=== PATIENT | female | born 1995 | race Caucasian/White ===

== ENCOUNTER → 2016-12-23 | Outpatient (CLI) | payer OTHER ==
[~2016-12-23] MED LIST: BCPILLS PO; DICY20TA10 PO; HYSSR375 PO; LORA-741 PO; NORGTAB36 PO; PANT40TA PO; SERT-234 PO; VITAMIN D2 PO; ZNTT/150 PO
--- NOTE | 2016-12-23 12:39 | DIAGNOSTIC IMAGING REPORT ---
NUCLEAR GASTRIC EMPTYING STUDY CLINICAL HISTORY: Epigastric abdominal pain. Early satiety. COMPARISON STUDY: Abdominal ultrasound dated 04/06/2016. TECHNIQUE: Following the oral administration of 1.089 mCi of technetium 99m sulfur colloid in egg sandwich and 8 ounces of water, static abdominal images are obtained anteriorly and posteriorly at 0 minutes, 1 hour, 2 hour, and 4 hour time intervals. Gastric emptying was calculated utilizing the geometric mean method. FINDINGS: There is approximately 83% activity remaining at the 1 hour time interval, 53% remaining at the 2 hour time interval (normal is less than 60%), and 1% activity remaining at the 4 hour time interval (normal is less than 10%). IMPRESSION: Findings are consistent with normal gastric emptying for solids. Electronically signed by: Lexx Lemus M.D. 12/23/2016 12:37 PM Dictated Date/Time: 12/23/2016 12:36 PM
== END | disposition home or self-care (01) ==
LOC: C.NUCL 07:31
PROVIDERS: ATTEND Internal Medicine
DX: R10.13 Epigastric pain (principal); R68.81 Early satiety; K21.9 Gastro-esophageal reflux disease without esophagitis

== ENCOUNTER → 2017-01-18 | Day surgery (SDC) | payer OTHER ==
[2017-01-06 12:36] VITALS: BMI 26.0
[~2017-01-18] VITALS: Ht 139.7 cm; Wt 51.8 kg
[~2017-01-18] MED LIST changes: -DICY20TA10 PO; +LIDOCAINE HCL 2% 2 ML VIAL (20MG/ML) ONE; +MIDAZOLAM HCL 1 MG/ML 2ML VIAL ONE; -NORGTAB36 PO; +PROPOFOL IV EMULSION 10 MG/ML 20 ML VIAL IV ONE; +SODIUM CHLORIDE 0.9% 500ML 500 ML IV ONE
[2017-01-18 08:22] VITALS: Ht 139.7 cm; Wt 51.8 kg
--- NOTE | 2017-01-18 09:06 | Endo History and Physical ---
History & Physical Date of Service: Jan 18, 2017. Chief Complaint: GERD, EPIGASTRIC ADB PAIN Referring Physician: DR. DUYEN ALEGRIA History of Present Illness 21 yo CF who presents for EGD secondary to GERD and Epigastric abdominal pain. Past Medical History Gastrointestinal Disorder Past Surgical History Hx Cardiac Surgery: No Hx Internal Defibrillator: No Hx Pacemaker: No Hx Abdominal Surgery: No Hx of Implantable Prosthesis: No Hx Post-Op Nausea and Vomiting: No Hx Cancer Surgery: No Hx Thoracic Surgery: No Hx Orthopedic: No Hx Urinary Tract Surgery: No Family History Polyp Social History Smoking Status: Never Smoker Hx Substance Use: No Hx Alcohol Use: Yes (OCCASSIONALLY) Allergies Coded Allergies: No Known Allergies (Verified , OTHER, 01/06/17) Current Medications Reported Home Medications Medications Dose Route/Sig Max Daily Dose Days Date Category Ativan (Lorazepam) 0.5 Mg Tab 0.5 Mg PO DAILY PRN 01/06/17 Reported [Vitamin D2] 1.25 Mg PO WK 01/06/17 Reported Zoloft (Sertraline HCl) 100 Mg Tab 100 Mg PO QAM 01/06/17 Reported Protonix (Pantoprazole Sodium) 40 Mg Tab 40 Mg PO QAM 01/06/17 Reported Control Pills (Miscellaneous) Tab 1 Tab PO QAM 01/06/17 Reported Zantac (Ranitidine HCl) 150 Mg Tab 2 Tab PO HS 01/06/17 Reported Hyoscyamine Sulfate ER (Hyoscyamine Sulfate) 0.375 Mg Tab 1 Tab PO QAM 01/06/17 Reported Vital Signs Weight (Kilograms): 51.82 Height (Feet): 4 Height (Inches): 7 Date Time Temp Pulse Resp B/P Pulse Ox O2 Delivery O2 Flow Rate FiO2 01/18/17 08:45 36.9 96 20 116/84 96 Room Air Physical Exam General Appearance: WD/WN, no apparent distress Respiratory/Chest: Auscultation: breath sounds normal Cardiovascular: Heart Auscultation: RRR Abdomen: Bowel Sounds: normal Inspection & Palpation: soft, non-distended, no tenderness, guarding & rebound Assessment and Plan Assessment: 21 yo CF who presents for EGD secondary to GERD and Epigastric abdominal pain. Plan: Proceed with EGD.
--- NOTE | 2017-01-18 09:16 | Discharge Instructions ---
Endoscopy Patient Instructions Date / Procedure(s) Performed Jan 18, 2017. EGD Allergy Information Coded Allergies: No Known Allergies (Verified , OTHER, 01/06/17) Discharge Date / Findings Jan 18, 2017. Gastritis s/p biopsies Medication Instructions OK to resume all medications today as prescribed. Reported Home Medications Medications Dose Route/Sig Max Daily Dose Days Date Category Ativan (Lorazepam) 0.5 Mg Tab 0.5 Mg PO DAILY PRN 01/06/17 Reported [Vitamin D2] 1.25 Mg PO WK 01/06/17 Reported Zoloft (Sertraline HCl) 100 Mg Tab 100 Mg PO QAM 01/06/17 Reported Protonix (Pantoprazole Sodium) 40 Mg Tab 40 Mg PO QAM 01/06/17 Reported Control Pills (Miscellaneous) Tab 1 Tab PO QAM 01/06/17 Reported Zantac (Ranitidine HCl) 150 Mg Tab 2 Tab PO HS 01/06/17 Reported Hyoscyamine Sulfate ER (Hyoscyamine Sulfate) 0.375 Mg Tab 1 Tab PO QAM 01/06/17 Reported Provider Instructions Activity Restrictions - No exercising or heavy lifting for 24 hours. - Do not drink alcohol the day of the procedure. - Do not drive a car or operate machinery until the day after the procedure. - Do not make any important decisions or sign important papers in 24 hours after the procedure. Following Day: - Return to full activity which may include returning to work/school. Diet Start your diet with liquids and light foods (jello, soup, juice, toast). Then eat your usual diet if not nauseated. Treatment For Common After Affects For mild abdominal pain, bloating, or excessive gas: - Rest - Eat lightly - Lie on right side Follow-Up Information Follow-up with DR. DYUEN ALEGRIA as scheduled Anesthesia Information What You Should Know You have had a procedure that required some medicine to reduce anxiety and discomfort. This treatment is called moderate sedation. After receiving the treatment, you may be sleepy, but you will be able to breathe on your own. The effects of the treatment may last for several hours. Follow these instructions along with Activity/Diet recommendations noted above: * Do NOT do anything where dizziness or clumsiness would be dangerous. * Rest quietly at home today, then you can be up and about tomorrow. * Have a responsible person stay with you the rest of today. * You may have had an I.V. today. If so, you may take the dressing off later today. Recommendations Call your doctor if: * Trouble breathing * Continuous vomiting for more than 24 hours * Temperature above 101 degrees * Severe abdominal pain or bloating * Pain not relieved by pain medicine ordered * There is increased drainage or redness from any incision * A large amount of rectal bleeding greater than 2-3 tablespoons. (If you had a polyp/s removed or have hemorrhoids, a small amount of blood - from the rectum is to be expected.) * You have any unanswered questions or concerns. IN THE EVENT OF A SERIOUS EMERGENCY, GO TO THE NEAREST EMERGENCY ROOM Your discharge instructions were prepared by provider Jp Pena. Patient Instructions Signature Page Irene Lang Patient (or Guardian) Signature/Date: I have read and understand the instructions given to me by my caregivers. Caregiver/RN/Doctor Signature/Date: The above-named patient and/or guardian has received patient instructions on this date. + Original Patient Signature Page (only) stays with chart. Please make copy for patient.
--- NOTE | 2017-01-18 09:19 | GI REPORT ---
Procedure Date: 01/18/2017 9:05 AM Procedure: Upper GI endoscopy Indications: Epigastric abdominal pain, Gastro-esophageal reflux disease Medicines: Monitored Anesthesia Care Complications: No immediate complications. Estimated Blood Loss: Estimated blood loss: none. Procedure: Pre-Anesthesia Assessment: - Prior to the procedure, a History and Physical was performed, and patient medications and allergies were reviewed. The patient's tolerance of previous anesthesia was also reviewed. The risks and benefits of the procedure and the sedation options and risks were discussed with the patient. All questions were answered, and informed consent was obtained. Prior Anticoagulants: The patient has taken no previous anticoagulant or antiplatelet agents. ASA Grade Assessment: II - A patient with mild systemic disease. After reviewing the risks and benefits, the patient was deemed in satisfactory condition to undergo the procedure. After obtaining informed consent, the endoscope was passed under direct vision. Throughout the procedure, the patient's blood pressure, pulse, and oxygen saturations were monitored continuously. The scope was introduced through the mouth, and advanced to the second part of duodenum. The upper GI endoscopy was accomplished without difficulty. The patient tolerated the procedure well. Findings: The esophagus was normal. Localized mild inflammation characterized by erythema was found in the gastric antrum. Biopsies were taken with a cold forceps for histology. The examined duodenum was normal. Impression: - Normal esophagus. - Gastritis. Biopsied. - Normal examined duodenum. Recommendation: - Resume previous diet. - Continue present medications. - Await pathology results. - Return to GI office as previously scheduled. Jp Pena DO 01/18/2017 9:18:33 AM This report has been signed electronically. Note Initiated On: 01/18/2017 9:05 AM I attest to the content of the Intraoperative Record and orders documented therein, exceptions below
[2017-01-18 09:55] VITALS: BP 129/96; PULSE 62; O2SAT 96
--- NOTE | 2017-01-18 10:07 | Anesthesiology Progress Note ---
Anesthesia Post Op Note Date & Time Jan 18, 2017 at 10:06 Vital Signs Pain Intensity: 0 Vital Signs Past 12 Hours Date Time Temp Pulse Resp B/P Pulse Ox O2 Delivery O2 Flow Rate FiO2 01/18/17 09:55 62 20 129/96 96 Room Air 01/18/17 09:40 72 20 121/75 97 Room Air 01/18/17 09:25 75 16 104/65 97 Room Air 01/18/17 08:45 36.9 96 20 116/84 96 Room Air Notes Mental Status: alert / awake / arousable, participated in evaluation Pt Amnestic to Procedure: Yes Nausea / Vomiting: adequately controlled Pain: adequately controlled Airway Patency, RR, SpO2: stable & adequate BP & HR: stable & adequate Hydration State: stable & adequate Anesthetic Complications: no major complications apparent
== END | disposition home or self-care (01) ==
LOC: C.GI 08:07
PROVIDERS: ATTEND Internal Medicine
DX: K29.70 Gastritis, unspecified, without bleeding (principal); K21.9 Gastro-esophageal reflux disease without esophagitis

== ENCOUNTER → 2017-07-05 | Outpatient (CLI) | payer OTHER ==
[~2017-07-05] MED LIST changes: -LIDOCAINE HCL 2% 2 ML VIAL (20MG/ML) ONE; -MIDAZOLAM HCL 1 MG/ML 2ML VIAL ONE; -PROPOFOL IV EMULSION 10 MG/ML 20 ML VIAL IV ONE; -SODIUM CHLORIDE 0.9% 500ML 500 ML IV ONE
== END | disposition home or self-care (01) ==
LOC: C.PAPS 11:48
PROVIDERS: ATTEND Obstetrics & Gynecology
DX: Z12.4 Encounter for screening for malignant neoplasm of cervix (principal)

== ENCOUNTER 2020-02-09 07:07 | Inpatient (IN) ==
[2020-02-09] MEDS ORDERED: OXYTOCIN 30 UNITS/500 ML BAG IV PRN ×3 (07:22→20:49)
[2020-02-09] MEDS ORDERED: PENICILLIN G POTASSIUM 6 MU in DEXTROSE 5% 250 ML IV STA (07:23)
--- NOTE | 2020-02-09 07:32 | History & Physical Report ---
Date of Service February 09, 2020 Assessment & Plan (1) Supervision of normal first : 24yo at 36.5 weeks GA. Presents with PPROM. Fetus: Cat 1. Considered BMZ but due to the recommendation to limit use of BMZ for late pregnancies we have opted to not give. At 36.5 weeks GA the benefit would be minimal and the risk if she has COVID or developed COVID soon could cause significant harm. 2. Labor: Will augment with pitocin 3. Vital: WNL 4. VB antepartum: No bleeding for past 2-3 weeks. Stable today 5. GBS unknown in : PCN. GBS culture pending (2) Depression: (3) Vaginal bleeding in : History of Present Illness Primary Care Provider: Dena Haddad MD 24yo at 36.5 weeks GA. Presents for LOF. Reporting irregular contractions. Has had VB intermittently throughout her third trimester. No significant VB today. Good FM. complicated by mild anemia on 28 weeks labs. GBS unknown but was collected yesterday and is pending result Allergies Allergy/AdvReac Type Severity Reaction Status Date / Time No Known Drug Allergies Allergy Verified 02/08/20 09:26 Home Medications Home Medications Medication Instructions Recorded Confirmed Type vit-iron fum-folic ac 1 tab PO DAILY 07/05/19 02/09/20 History [ Vitamin] Patient History Social History Preferred Language: Romanian Communication Ability: Effective Crossing Tender Required: No Beliefs That Will Affect Care: None marital status: single marital status details: HERIBERTO Tamez (30) [phone] Current Living Situation: Significant Other Current Living Situation Comment: lives with FOB and 1 dog current occupational status: employed Feels Safe at Home: Yes Smoking Status: Former smoker Hx Alcohol Use: No Hx Substance Use: No Dental Care, Regularly: Yes Seatbelt Use: always Physical Exam Genitourinary: OB Exam Abdomen: + vertex Manual OB Exam: + cervical dilation (1.5), + cervical effacement 50%, + station -2 and + amniotic fluid clear OB Exam Monitor Tracing: + external FHT monitor used, + external uterine monitor used, + category I and + normal FHT variability; no early decelerations present, no late decelerations present and no variable decelerations Exam by Dr Meraz Results & Data Vital Signs (Past 12 Hours) Vital Signs Temp Pulse Resp BP 02/09/20 07:23 36.9 C 83 20 140/86 Coding Level of Care Code None Diagnoses Supervision of normal first Z34.00 Depression F32.9 Vaginal bleeding in O46.90
[2020-02-09 07:50] LABS: Hemoglobin 10.7 g/dL (12.0-16.0); Mean Corpuscular Hemoglobin 27.4 pg (25-34); Mean Corpuscular Volume 84.4 fL (80-100); Mean Platelet Volume 12.2 fL (7.4-10.4); Platelet Count 235 K/uL (130-400); RDW Coefficient of Variation 15.1 % (11.5-14.5); RDW Standard Deviation 45.9 fL (36.4-46.3); Red Blood Count 3.91 M/uL (4.2-5.4); White Blood Count 10.15 K/uL (4.8-10.8)
[2020-02-09 07:59] LABS: Prothrombin Time 10.5 Seconds (9.0-12.0)
[2020-02-09 08:11] LABS: Alanine Aminotransferase 12 U/L (12-78); Albumin Level 2.5 gm/dl (3.4-5.0); Aspartate Aminotransferase 11 U/L (15-37); Bilirubin Direct < 0.1 mg/dl (0-0.2); Est GFR (African American) 149.3; Est GFR (Non-African American) 128.8; Uric Acid 4.6 mg/dl (2.6-7.2)
[2020-02-09 08:14] LABS: Alkaline Phosphatase 206 U/L (45-117); Bilirubin,Total 0.2 mg/dl (0.2-1); Total Protein 6.7 gm/dl (6.4-8.2)
[2020-02-09 08:15] LABS: Mean Corpuscular Hgb Conc 32.4 g/dL (32-36)
[2020-02-09] MEDS: LACTATED RINGER'S 1,000 ML IV PRN ×2 (08:22→13:14)
--- NOTE | 2020-02-09 09:30 | Labor Progress Brief Note ---
Date of Service February 09, 2020 Subjective Change of shift note. The patient is a 24-year-old 1 para 0 at 36+ weeks gestational age who was admitted with premature rupture membranes. Membranes ruptured at approximately 0530 hrs. Patient denied vaginal bleeding or contractions. The patient's course has been remarkable for some third trimester vaginal bleeding. She has been evaluated multiple times for this and pelvic ultrasound showed no evidence of previa or abruption. At the patient's last evaluation bleeding was felt to be from the cervix and consistent with a cervicitis. A vaginal culture was positive for Gardnerella. Patient was treated for this and has had no further vaginal bleeding. Assessment & Plan (1) premature rupture of membranes: - heart rate tracing category 2 with variability and accelerations. -Gross rupture of membranes -Do not feel that the third trimester bleeding represents an abruption but more likely cervicitis -Pitocin per induction protocol -Unknown GBS status, penicillin has been ordered -Pediatrics is aware of patient -Mildly elevated blood pressure on admission -Preeclampsia labs within normal limits -We will continue to monitor blood pressure -The patient is 4 feet 7 inches tall -No evidence of dystocia at this time but will continue to monitor -All questions answered of the patient Physical Exam Genitourinary: Cervix: 50/-2 Results & Data Vital Signs (Past 12 Hours) Vital Signs Temp Pulse Resp BP 02/09/20 09:12 67 131/80 02/09/20 08:43 98.4 F 20 02/09/20 08:33 78 130/91 02/09/20 07:54 103 H 130/93 02/09/20 07:43 82 132/90 02/09/20 07:23 98.4 F 83 20 140/86 Coding Level of Care Code None Diagnoses premature rupture of membranes O42.919
--- NOTE | 2020-02-09 12:11 | Labor Progress Brief Note ---
Date of Service February 09, 2020 Subjective bleeding with clots Assessment & Plan (1) premature rupture of membranes: (2) Vaginal bleeding in : - etiology of bleeding continues to be problematic - don't think this amount of bleeding is cervical - almost have to assume abruption - tracing is Cat II with accels and good variability - will continue with pitocin at this time Physical Exam Genitourinary: Cervix 1-2/80/-2, unable to pass IUPC Results & Data Vital Signs (Past 12 Hours) Vital Signs Temp Pulse Resp BP 02/09/20 11:41 85 119/80 02/09/20 11:08 97.7 F 02/09/20 10:42 83 123/72 02/09/20 10:11 70 127/87 02/09/20 09:50 98.1 F 02/09/20 09:41 76 124/82 02/09/20 09:12 67 131/80 02/09/20 08:43 98.4 F 02/09/20 08:33 78 130/91 02/09/20 07:54 103 H 130/93 02/09/20 07:43 82 132/90 02/09/20 07:23 98.4 F 83 20 140/86 Coding Level of Care Code None Diagnoses premature rupture of membranes O42.919 Vaginal bleeding in O46.90
[2020-02-09] MEDS: PENICILLIN G POTASSIUM 3 MU in DEXTROSE 5% 100 ML IV PRN ×2 (12:29→16:25)
[2020-02-09] MEDS ORDERED: BUPIVACAINE 0.25% 30 ML VIAL ONE (12:34)
[2020-02-09] MEDS ORDERED: fentaNYL citrate 100 MCG/2 ML VIAL ONE (12:34)
[2020-02-09] MEDS ORDERED: ePHEDrine sulfate 50 MG/ML AMP ONE (12:34)
[2020-02-09] MEDS ORDERED: fentaNYL 2MCG/ML ROPIV 1.25MG/ML 100 ML BAG EPI ONE (12:35)
--- NOTE | 2020-02-09 13:18 | Anesthesiology Consultation ---
Date of Service February 09, 2020 Assessment & Plan Chart Review Chart Review: Acceptable Risk for Labor Epidural Consults Requested none Proposed Anesthesia Risk / Benefits Reviewed With: PT / POA / Parent / Guardian, Accepts Plan and Informed Consent Obtained History Height/Weight Height: 4 ft 7 in Weight: 65.529 kg Allergies Allergy/AdvReac Type Severity Reaction Status Date / Time nickel Allergy Mild Rash Verified 02/09/20 08:46 Medications Home Medications Medication Instructions Recorded Confirmed Last Taken vit-iron fum-folic ac 1 tab PO DAILY 07/05/19 02/09/20 02/06/20 20:00 [ Vitamin] Active Medications Generic Name Dose Route Start Last Admin Trade Name Freq PRN Reason Stop Dose Admin Lactated Ringer's 1,000 mls @ 125 mls/hr 02/09/20 07:22 02/09/20 13:14 Lr IV 02/11/20 07:21 125 mls/hr .Q8H PRN Administration L&D Protocol Protocol Penicillin G Potassium 3 mu/ 106 mls @ 100 mls/hr 02/09/20 07:23 02/09/20 12:29 Dextrose IV 02/19/20 07:22 100 mls/hr Q4H PRN Administration Give until delivery Oxytocin 30 units in 500 mls @ 11 mls/hr 02/09/20 07:31 02/09/20 11:11 Pitocin IV 02/11/20 07:30 0.66 units/hr .Q24H PRN 11 mls/hr Labor Induction/Augmentation Titration Protocol 0.66 UNITS/HR Past Medical History Medical History Anxiety (Chronic) Cervicalgia Chicken pox Depression (Chronic) Encounter for anatomic survey GERD (gastroesophageal reflux disease) (Chronic) History of headache History of hypertension Vaginal bleeding before 22 weeks gestation Past Family History Family History Mother Emphysema lung Hypertension Diabetes Dyslipidemia Grandfather (Maternal) Dyslipidemia Hypertension Diabetes Heart disease Grandmother (Maternal) Liver disease Other Gestational diabetes Denies family history of Ovarian cancer Prostate cancer Myocardial infarction Breast cancer Colorectal cancer Past Surgical History Surgical History No pertinent past surgical history Social History Smoking Status: Former smoker Hx Alcohol Use: No Hx Substance Use: No substance use type: does not use Physical Exam Vital Signs Last Vital Signs Temp 36.5 C 02/09/20 11:08 Pulse 76 02/09/20 13:16 Resp 20 02/09/20 11:08 BP 118/58 L 02/09/20 13:16 Pulse Ox 98 02/09/20 13:14 Testing Laboratory Results 02/09/20 07:32 02/09/20 07:37 PT 10.5 Seconds (9.0-12.0) 02/09/20 07:37 INR 1.0 (0.9-1.1) 02/09/20 07:37
[2020-02-09] MEDS ORDERED: ePHEDrine sulfate 50 MG/ML AMP IV PRN (13:20)
[2020-02-09] MEDS ORDERED: NALOXONE HCL 0.4 MG/1 ML VIAL/CARP IV PRN (13:20)
[2020-02-09] MEDS ORDERED: NALOXONE HCL 1 MG in SODIUM CHLORIDE 0.9% 1000ML 1,000 ML IV PRN (13:20)
[2020-02-09] MEDS ORDERED: NALBUPHINE HCL INJ 10 MG/ML AMP IV PRN (13:20)
[2020-02-09] MEDS ORDERED: DiphenhydrAMINE HCL 50 MG/ML VIAL IV PRN (13:20)
[2020-02-09] MEDS ORDERED: fentaNYL 2MCG/ML ROPIV 1.25MG/ML 100 ML BAG EPI PRN (13:20)
--- NOTE | 2020-02-09 15:10 | Labor Progress Brief Note ---
Date of Service February 09, 2020 Subjective Reason For Note: Requested By RN and Monitor Concern Assessment & Plan (1) premature rupture of membranes: - tracing was Cat III and nursing d/c'd pitocin - decelerations with decreased variability - pitocin d/c'd and tracing now Cat II - discussed with the patient and partner - will hold pitocin for 30-45 minutes, then retart - discussed with patient that if baby can't tolerate pitocin, may need to consider C/S - all questions answered Physical Exam Genitourinary: 100/-2 Results & Data Vital Signs (Past 12 Hours) Vital Signs Temp Pulse Resp BP Pulse Ox 02/09/20 15:04 74 100 02/09/20 15:00 84 89 L 02/09/20 14:59 83 100 02/09/20 14:54 70 100 02/09/20 14:49 71 117/66 100 02/09/20 14:44 62 100 02/09/20 14:39 59 L 99 02/09/20 14:38 16 02/09/20 14:34 68 100 02/09/20 14:31 60 123/78 02/09/20 14:29 67 99 02/09/20 14:26 61 119/73 02/09/20 14:24 66 100 02/09/20 14:22 57 L 91 02/09/20 14:21 65 114/84 02/09/20 14:19 62 99 02/09/20 14:18 59 L 116/78 02/09/20 14:14 64 100 02/09/20 14:11 61 113/66 02/09/20 14:09 65 100 02/09/20 14:08 70 92 02/09/20 14:06 62 118/65 02/09/20 14:04 66 99 02/09/20 14:01 97.7 F 72 20 117/72 02/09/20 13:59 69 99 02/09/20 13:57 72 117/65 02/09/20 13:54 73 99 02/09/20 13:52 69 110/62 02/09/20 13:49 66 99 02/09/20 13:44 73 99 02/09/20 13:39 68 98 02/09/20 13:36 66 121/74 02/09/20 13:34 70 98 02/09/20 13:31 65 122/71 02/09/20 13:29 85 98 02/09/20 13:26 72 126/72 02/09/20 13:24 79 98 02/09/20 13:22 89 125/71 02/09/20 13:19 79 100 02/09/20 13:16 76 118/58 L 02/09/20 13:14 76 120/60 98 02/09/20 13:13 71 118/63 02/09/20 13:10 82 102/73 02/09/20 13:09 87 100 02/09/20 13:08 72 107/70 02/09/20 13:06 76 107/69 02/09/20 13:05 78 108/65 02/09/20 13:04 89 100 02/09/20 13:02 88 144/76 H 02/09/20 12:59 82 97 02/09/20 12:54 96 H 99 02/09/20 12:49 101 H 100 02/09/20 12:44 73 100 02/09/20 12:41 89 145/87 H 02/09/20 12:39 80 100 02/09/20 12:12 82 130/88 02/09/20 11:41 85 119/80 02/09/20 11:08 97.7 F 20 02/09/20 10:42 83 123/72 02/09/20 10:11 70 127/87 02/09/20 09:50 98.1 F 02/09/20 09:41 76 124/82 02/09/20 09:12 67 131/80 02/09/20 08:43 98.4 F 20 02/09/20 08:33 78 130/91 02/09/20 07:54 103 H 130/93 02/09/20 07:43 82 132/90 02/09/20 07:23 98.4 F 83 20 140/86 Coding Level of Care Code None Diagnoses premature rupture of membranes O42.919
[2020-02-09] MEDS ORDERED: ACETAMINOPHEN 325 MG TAB PO PRN (18:53)
--- NOTE | 2020-02-09 20:39 | Delivery Summary ---
Vaginal Delivery Summary Date of Service February 09, 2020 Vaginal Delivery Summary Findings: Viable male infant with Apgars of 8 and 9. Baby delivered over a midline second-degree laceration. Cord gases and cord blood samples are pending. Laceration was repaired with 4-0 Vicryl in a routine fashion. Estimated blood loss 300 cc. Labor Note: The patient is a 24-year-old 1 para 0 at 36+ weeks gestational age who was admitted with premature rupture membranes. Membranes ruptured at approximately 0530 hrs. Patient denied vaginal bleeding or contractions. The patient's course has been remarkable for some third trimester vaginal bleeding. She has been evaluated multiple times for this and pelvic ultrasound showed no evidence of previa or abruption. At the patient's last evaluation bleeding was felt to be from the cervix and consistent with a cervicitis. A vaginal culture was positive for Gardnerella. Patient was treated for this and has had no further vaginal bleeding. Upon admission the patient had gross rupture of membranes and was 1 cm dilated. Tracing was category 2. Pitocin was started per induction protocol. Because of the premature rupture of membranes, she was started on penicillin 6,000,000 unit loading dose then 3,000,000 units every 4 hours till delivery. Patient progressed into a regular labor pattern. Some bleeding was noted with the passages of clots but the tracing remained reassuring. An intrauterine pressure catheter was attempted to be placed but was unsuccessful. Patient then requested and received an epidural from anesthesia. She was 4 cm dilated and 100% effaced effaced. The Pitocin had to be intermittently discontinued secondary to a category 3 tracing. After resting the Pitocin was then reinitiated and no further bleeding was seen. The patient progressed to full dilatation and began her second stage. She pushed for approximately 15 minutes delivering the baby over a midline second-degree laceration and a second-degree left periurethral laceration. Cord was clamped and cut. Cord gases and cord blood samples were obtained. Placenta was delivered spontaneously and sent for pathological evaluation. The lacerations were repaired with 4-0 Vicryl. Estimated blood loss was 300 cc. Sponge and needle count was correct.
[2020-02-09 20:43] LABS: Base Excess Cord Arterial Bld -5.4 mEq/L (-9-1.8); CO2 Cord Arterial Blood 49 mmHg (39.1-73.5); HCO3 Cord Arterial Blood 22 mmol/L (19.7-28.5); PO2 Cord Arterial Blood 50 mmHg (4.1-31.7); pH Cord Arterial Blood 7.27 (7.1-7.38)
[2020-02-09 20:47] LABS: Base Excess Cord Venous Blood -2.4 mEq/L (-7.7-1.9); Cord Venous Blood HCO3 24 mmol/L (18.4-26.8); Cord Venous Blood PCO2 44 mmHg (30.4-57.2); Cord Venous Blood PO2 27 mmHg (14.1-43.3); Cord Venous Blood pH 7.34 (7.20-7.44)
[2020-02-09 20:49] LABS: O2 Saturation Cord Venous Bld < 60.0 % (<68)
[2020-02-09] MEDS ORDERED: HYDROCORTISONE ACETATE 25 MG SUPP PR PRN (20:49)
[2020-02-09] MEDS ORDERED: SUPERCREAM 0.870% 15 GM JAR EXT PRN (20:49)
[2020-02-09] MEDS ORDERED: BENZOCAINE 20% AER SPR 82.5 GM CAN EXT PRN (20:49)
[2020-02-09] MEDS: IBUPROFEN 600 MG TAB PO PRN (21:05)
[2020-02-09] MEDS: ACETAMINOPHEN 325 MG TAB PO PRN (23:49)
[2020-02-10] MEDS: IBUPROFEN 600 MG TAB PO PRN ×4 (07:23→19:51)
[2020-02-10] MEDS: FERROUS SULFATE 325 MG TAB PO SCH (07:24)
[2020-02-10] MEDS: PRENATAL VITAMIN 1 TAB PO SCH (07:25)
[2020-02-10] MEDS: DOCUSATE SODIUM 100 MG CAP PO SCH ×2 (07:25→19:51)
[2020-02-10] MEDS: ACETAMINOPHEN 325 MG TAB PO PRN ×2 (08:02→12:26)
--- NOTE | 2020-02-10 08:18 | Obstetrical Progress Note ---
Date of Service February 10, 2020 Assessment & Plan (1) premature rupture of membranes: - tailbone pain discussed - ambulate - routine pp care Subjective Ambulation: ambulating normally c/o "tailbone" pain Physical Exam Constitutional WD/WN, vitals as above Gastrointestinal (Abdomen) Fundus firm below umbilicus Musculoskeletal No deep calf tenderness Results & Data Vital Signs (Past 12 Hours) Vital Signs Temp Pulse Pulse Resp BP BP Pulse Ox 02/10/20 04:15 97.9 F 78 16 113/75 97 02/10/20 00:45 98.4 F 104 H 16 101/61 96 02/09/20 22:10 97.9 F 71 18 118/78 02/09/20 21:49 98.8 F 108 H 18 134/65 02/09/20 21:34 105 H 130/58 L 02/09/20 21:19 115 H 18 126/60 02/09/20 21:04 95 H 127/70 02/09/20 20:48 88 18 111/61 02/09/20 20:47 87 110/62 02/09/20 20:39 18 02/09/20 20:24 99 H 18 120/64
[2020-02-10] MEDS ORDERED: DIPHTHERIA/TETANUS/PERTUSSIS 0.5 ML SYR/VIAL IM ONE (09:00)
[2020-02-10] MEDS: ACETAMINOPHEN W/CODEINE #3 1 TAB PO PRN (16:17)
[2020-02-10] MEDS ORDERED: bisacodyL 5 MG TABEC PO SCH (20:00)
[2020-02-11] MEDS: IBUPROFEN 600 MG TAB PO PRN ×3 (00:25→10:30)
[2020-02-11] MEDS: ACETAMINOPHEN W/CODEINE #3 1 TAB PO PRN ×3 (00:27→10:30)
[2020-02-11 06:29] LABS: Hematocrit (blood only) 27.3 % (37-47); Hemoglobin 8.6 g/dL (12.0-16.0)
[2020-02-11] MEDS: PRENATAL VITAMIN 1 TAB PO SCH (08:22)
[2020-02-11] MEDS: FERROUS SULFATE 325 MG TAB PO SCH (08:22)
[2020-02-11] MEDS: DOCUSATE SODIUM 100 MG CAP PO SCH (08:23)
--- NOTE | 2020-02-11 09:24 | Obstetrical Progress Note ---
Date of Service February 11, 2020 Assessment & Plan (1) premature rupture of membranes: significnt tailbone pain. I offered her to stay one more day, she wishes to go home Percocet, Fe Subjective Ambulation: ambulating normally Voiding: no voiding problems Diet Tolerance:: regular diet Current Pain Level(1-10): 8 having tailbone pain. responds to narcotics Physical Exam Constitutional WD/WN, vitals as above Gastrointestinal (Abdomen) normal bowel sounds, soft, nontender, no hepatosplenomegaly (ext neg) Genitourinary normal external appearance Results & Data Vital Signs (Past 12 Hours) Vital Signs Temp Pulse Resp BP Pulse Ox 02/10/20 23:15 97.9 F 92 H 18 127/78 97
== END 2020-02-11 10:40 | disposition home or self-care (01) | DRG 807 ==
LOC: 4S1 07:07 → 4S2 22:15